=== PATIENT | female | born 1995 | race Caucasian/White ===

== ENCOUNTER 2017-01-20 09:17 | Emergency (ER) | payer OTHER ==
--- NOTE | ~2017-01-20 | ER ---
PATIENT'S NAME: [facility] AGE: 21 Y [address] ROOM: [place] [id number] LOCATION: [facility] ADMIT DATE: 01/20/2017 ER/Outpatient Report DISCHARGE DATE: FAMILY PHYSICIAN: PHYSICIAN, NO ATTENDING PHYSICIAN: Felix Hall TIME OF ARRIVAL: 0920 hours. TIME OF EVALUATION: 0920 hours. CHIEF COMPLAINT: Neck pain. HISTORY OF PRESENT ILLNESS: The patient is a 21-year-old female, who presents to the emergency department today with chief complaint of neck pain. She reports it started a few days prior to arrival. She did take some pain medicine, which improved the pain. She does have some numbness into her left arm. She denies any fevers or chills. No nausea or vomiting. No diarrhea or constipation. No chest pain. No shortness of breath. No headache. No abdominal pain. PAST MEDICAL HISTORY: None. PAST SURGICAL HISTORY: Tonsillectomy. SOCIAL HISTORY: The patient is from [facility]. She is here for the summer selling books. Denies any tobacco, alcohol, or illicit drug use. ALLERGIES: NO KNOWN DRUG ALLERGIES. MEDICATIONS: Unknown pain medicine. PRIMARY CARE DOCTOR: None. REVIEW OF SYSTEMS: All systems are reviewed by myself and are negative with the exception of those discussed in the HPI and past medical history. [facility] 21 Y [address] ROOM: [place] [id number] LOCATION: [facility] ADMIT DATE: 01/20/2017 ER/Outpatient Report DISCHARGE DATE: FAMILY PHYSICIAN: PHYSICIAN, NO ATTENDING PHYSICIAN: Felix Hall PHYSICAL EXAMINATION: VITAL SIGNS: Weight 70.7 kg. Blood pressure 157/80, pulse 97, respiratory rate 16, temperature 98.2, and oxygen saturation 98% on room air. GENERAL: The patient is a 21-year-old female, who appears at stated age, well developed, well nourished, in no acute distress. HEENT: Head: Normocephalic, atraumatic. Pupils are equal, round, and reactive to light. Oropharynx is clear. Mucous membranes are moist. NECK: Supple. There is no nuchal rigidity. The patient does have tenderness to palpation on the left paraspinal musculature. CARDIOVASCULAR: Regular rate and rhythm. No murmurs, rubs, or gallops. LUNGS: Clear to auscultation bilaterally. No wheezes, rales, or rhonchi. ABDOMEN: Soft, nontender, nondistended. No rebound, rigidity, or guarding. MUSCULOSKELETAL: The patient moves all 4 extremities. 5/5 muscle strength. SKIN: Warm and dry. There are no rashes or lesions noted. LABORATORY DATA AND X-RAYS: None. IMPRESSION: 1. Acute cervical radiculopathy. 2. Initial visit. EMERGENCY DEPARTMENT COURSE: The patient is brought back to the examination room. Seen and evaluated by myself. History and physical performed as described above. I have discussed results with the patient. She does have an excellent overall clinical appearance at this time. I do feel she is safe for outpatient therapy and evaluation. I have written a prescription for prednisone and Flexeril. I have discussed neck stretching exercises. I have asked she follow up with primary care doctor in 2 to 3 days for re-evaluation. I have discussed [id number] instructions including worsening of symptoms or any other concerns to return to the emergency department as soon as possible. The patient is agreeable without further questions at this time. DISPOSITION: The patient is discharged to home in good condition. DO WILBER FRY/francie PATIENT'S NAME: MARLENY FRANCOIS [facility] AGE: 21 Y [address] ROOM: [place], [place] [address] LOCATION: [facility] ADMIT DATE: 01/20/2017 ER/Outpatient Report DISCHARGE DATE: FAMILY PHYSICIAN: PHYSICIAN, NO ATTENDING PHYSICIAN: Felix Hall /[id number] d: 01/20/17 1031 t: 01/21/17 1449, OUTPATIENT REPORT
== END 2017-01-20 09:36 | disposition disaster alternative care site (69) ==
LOC: GMED 09:17
DX: M54.12 Radiculopathy, cervical region (principal); Z90.89 Acquired absence of other organs